=== PATIENT | female | born 1995 | race Caucasian/White ===

== ENCOUNTER → 2017-04-08 | Outpatient (CLI) | payer MEDICAID | LOC: LC 14:47 | PROVIDERS: ATTEND Specialist | PROC: 4A1HXCZ Monitoring of Products of Conception, Cardiac Rate, External Approach (ICD-10-PCS; principal; 2017-04-08) | DX: Z36 Encounter for antenatal screening of mother (principal) ==

== ENCOUNTER 2017-05-23 21:30 | Emergency (ER) | payer MEDICAID ==
--- NOTE | 2017-05-23 22:56 | ER Document Report ---
HPI - HPI Patient complains to provider of: right hand pain Onset: This afternoon Onset/Duration: Sudden Quality of pain: Achy Severity: Moderate Pain Level: 3 Context: Presents emergency department with complaints of right hand pain. Patient reports she tripped and started to fall and caught herself on her hand this afternoon. She reports now pain with movement. Patient is reports she did not fall on her abdomen. Denies abdominal pain. Reports the baby is moving as normal. Reports she is right hand dominant Associated Symptoms: None Exacerbated by: Movement Relieved by: Denies Similar symptoms previously: No Recently seen / treated by doctor: No - REPRODUCTIVE Reproductive: DENIES: : - DERM Skin Color: Normal Past Medical History - General Information source: Patient Last Menstrual Period: - Social History Smoking Status: Unknown if Ever Smoked Cigarette use (# per day): No Frequency of alcohol use: None Drug Abuse: None Lives with: Family Family History: Reviewed & Not Pertinent Patient has suicidal ideation: No Patient has homicidal ideation: No Pulmonary Medical History: Denies: Hx Tuberculosis Renal/ Medical History: Denies: Hx Peritoneal Dialysis Psychiatric Medical History: Reports: Hx Attention Deficit Hyperactivity Disorder, Hx Bipolar Disorder, Hx Depression Past Surgical History: Reports: Hx Section - Immunizations Immunizations up to date: Yes Hx Diphtheria, Pertussis, Tetanus Vaccination: Yes Vertical Provider Document - CONSTITUTIONAL Agree With Documented VS: Yes Exam Limitations: No Limitations General Appearance: WD/WN, No Apparent Distress - nontoxic looking - INFECTION CONTROL TRAVEL OUTSIDE OF THE [place] IN LAST 30 DAYS: No - HEENT HEENT: Atraumatic, Normocephalic - NECK Neck: Supple - RESPIRATORY Respiratory: No Respiratory Distress O2 Sat by Pulse Oximetry: 97 - CARDIOVASCULAR Cardiovascular: Regular Rate - GI/ABDOMEN Gastrointestinal: Abdomen Non-Tender - MUSCULOSKELETAL/EXTREMETIES Musculoskeletal/Extremeties: MAEW, FROM, Tender - right hand dorsally ttp, no obvious deformity, + swelling, no ecchymosis, brisk cap refill, no wrist tenderness - NEURO Level of Consciousness: Awake, Alert, Appropriate Motor/Sensory: No Motor Deficit - DERM Integumentary: Warm, Dry Course - Re-evaluation Re-evalutation: 05/24/17 00:20 Patient instructed on fracture right hand. Patient instructed on plan of care for splint. Requesting something for pain. Requesting something stronger than Tylenol. Reports she has taken Vicodin and Percocet before without problems. Instructed on the importance of follow-up with orthopedics. She verbalized understanding 05/24/17 00:51 Patient reports hand feels much better after splint has been placed. - Vital Signs Vital signs: Temp Pulse Resp BP Pulse Ox 98.8 F 83 18 130/64 H 97 05/23/17 22:14 05/23/17 22:14 05/23/17 22:14 05/23/17 22:14 05/23/17 22:14 - Diagnostic Test Radiology reviewed: Image reviewed, Reports reviewed - EXAM DESCRIPTION: HAND RIGHT 3 VIEWS COMPLETED DATE/TIME: 05/23/2017 11:45 pm REASON FOR STUDY: hand pain, fell on hand COMPARISON: None. EXAM PARAMETERS: NUMBER OF VIEWS: Three views. TECHNIQUE: AP, lateral and oblique radiographic images acquired of the right hand. LIMITATIONS: None. FINDINGS: MINERALIZATION: Normal. BONES: Mildly displaced oblique fracture through the 3rd metacarpal diaphysis with nondisplaced incomplete fracture of the 4th metacarpal diaphysis. JOINTS : No effusions. SOFT TISSUES: Mild circumferential soft tissue swelling. OTHER : No other significant finding. IMPRESSION: Oblique fractures through the 3rd and 4th metacarpal diaphyses as detailed above. Procedures - Immobilization Right Hand Pre-Proc Neuro Vasc Exam: Normal Immobilizer type: Volar splint Performed by: YANN uribe Post-Proc Neuro Vasc Exam: Unchanged from pre-exam Alignment checked and good: Yes Discharge - Discharge Clinical Impression: Right hand pain, fx 3rd/4th metacarpal right hand Condition: Stable Disposition: HOME, SELF-CARE Instructions: Ice & Elevation ([facility]), Oral Narcotic Medication ([facility]), Fracture ( [facility]), Splint Pending Casting ([facility]) Additional Instructions: *You have been evaluated for right hand pain, fracture 3rd metacarpal diaphysis with nondisplaced incomplete fracture of the 4th metacarpal diaphysis. *Maintain the splint *Rest/Ice/Elevate your hand *Follow up with orthopedics within 5 days-call for an appointment *Take medication as prescribed for pain *Return to ED for worsening condition, changes, needs Referrals: [facility] [Provider Group] - Follow up in 3-5 days HEATHER CARLSON MD [Primary Care Provider] - Follow up in 3-5 days
--- NOTE | 2017-05-23 23:57 | RADIOLOGY REPORT (SQ) ---
EXAM DESCRIPTION: HAND RIGHT 3 VIEWS COMPLETED DATE/TIME: 05/23/2017 11:45 pm REASON FOR STUDY: hand pain, fell on hand COMPARISON: None. EXAM PARAMETERS: NUMBER OF VIEWS: Three views. TECHNIQUE: AP, lateral and oblique radiographic images acquired of the right hand. LIMITATIONS: None. FINDINGS: MINERALIZATION: Normal. BONES: Mildly displaced oblique fracture through the 3rd metacarpal diaphysis with nondisplaced incom plete fracture of the 4th metacarpal diaphysis. JOINTS: No effusions. SOFT TISSUES: Mild circumferential soft tissue swelling. OTHER: No other significant finding. IMPRESSION: Oblique fractures through the 3rd and 4th metacarpal diaphyses as detailed above. TECHNICAL DOCUMENTATION: JOB ID: [id number] [employer]- All Rights Reserved
[2017-05-24] MEDS ORDERED: HYDROCODONE/ACETAMINOPHEN 5-325 MG 6 TAB/DSPK PO PRN (00:16)
[2017-05-24 01:00] VITALS: BP 115/78
== END 2017-05-24 00:58 | disposition home or self-care (01) ==
LOC: ER 21:30
DX: S62.302A Unspecified fracture of third metacarpal bone, right hand, initial encounter for closed fracture (principal); S62.304A Unspecified fracture of fourth metacarpal bone, right hand, initial encounter for closed fracture; M79.641 Pain in right hand; X58.XXXA Exposure to other specified factors, initial encounter
CPT/HCPCS: 99283

== ENCOUNTER 2018-03-27 21:36 | Emergency (ER) | payer OTHER, MEDICAID ==
[2018-03-27] MEDS ORDERED: LORAZEPAM INJ 2 MG/1 ML VIAL IV ONE ×2 (21:54→23:26)
[2018-03-27] MEDS ORDERED: NORMAL SALINE 1000 ML 1,000 ML IV ONE (21:55)
[2018-03-27 23:19] LABS: ALANINE AMINOTRANSFERASE 34 U/L (9-52); ALBUMIN 4.6 g/dL (3.5-5.0); ALKALINE PHOSPHATASE 78 U/L (38-126); ANION GAP 18 (5-19); ASPARTATE AMINO TRANSFERASE 32 U/L (14-36); BILIRUBIN,DIRECT 0.3 mg/dL (0.0-0.4); BILIRUBIN,TOTAL 0.6 mg/dL (0.2-1.3); BLOOD UREA NITROGEN 6 mg/dL (7-20); CALCIUM 9.6 mg/dL (8.4-10.2); CARBON DIOXIDE 22 mmol/L (22-30); CHLORIDE 108 mmol/L (98-107); GLUCOSE 90 mg/dL (75-110); POTASSIUM 3.3 mmol/L (3.6-5.0); SODIUM 147.8 mmol/L (137-145); TOTAL PROTEIN 7.6 g/dL (6.3-8.2)
[2018-03-27 23:31] LABS: ABSOLUTE EOSINOPHILS # (AUTO) 0.1 10^3/uL (0.0-0.6); ABSOLUTE LYMPHOCYTES (AUTO) 2.4 10^3/uL (0.5-4.7); ABSOLUTE MONOCYTES (AUTO) 0.9 10^3/uL (0.1-1.4); ABSOLUTE NEUT (AUTO) 7.1 10^3/uL (1.7-8.2); BASOPHILS % (AUTO) 0.4 % (0-2); EOSINOPHILS % (AUTO) 0.5 % (0-6); HEMATOCRIT 45.5 % (36.0-47.0); HEMOGLOBIN 15.7 g/dL (12.0-15.5); MEAN CORPUSCULAR HEMOGLOBIN 30.8 pg (27.0-33.4); MEAN CORPUSCULAR HGB CONC 34.5 g/dL (32.0-36.0); MEAN CORPUSCULAR VOLUME 89 fl (80-97); MONOCYTES % (AUTO) 8.4 % (3-13); PLATELET COUNT 291 10^3/uL (150-450); RED CELL DISTRIBUTION WIDTH 13.7 % (11.5-14.0); SEGMENTED NEUTROPHILS % (AUTO) 67.7 % (42-78); TOTAL CELLS COUNTED % (AUTO) 100 %; WHITE BLOOD COUNT 10.5 10^3/uL (4.0-10.5)
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
[2018-03-28] MEDS ORDERED: KETOROLAC TROMETHAMINE INJ/PF 30 MG/1 ML SDV IV ONE (01:16)
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
[2018-03-28 01:50] VITALS: BP 127/76
--- NOTE | 2018-03-28 08:29 | EKG REPORT ---
SEVERITY:- ABNORMAL ECG - SINUS TACHYCARDIA NONSPECIFIC ST-T CHANGES- INFERIOR LEADS : Confirmed by: Kevin Woo MD 28-Mar-2018 08:28:22
== END 2018-03-28 01:49 | disposition home or self-care (01) ==
LOC: ER 21:36
DX: S20.219A Contusion of unspecified front wall of thorax, initial encounter (principal); M54.2 Cervicalgia; R07.9 Chest pain, unspecified; R51 Headache; M54.9 Dorsalgia, unspecified; V47.5XXA Car driver injured in collision with fixed or stationary object in traffic accident, initial encounter; F10.129 Alcohol abuse with intoxication, unspecified; F41.9 Anxiety disorder, unspecified; R00.0 Tachycardia, unspecified; R06.82 Tachypnea, not elsewhere classified
CPT/HCPCS: 93005; 96376; 99285; 96361; 96374; 96375; 36415; 84702; 85025; 80053; 70450; 71260; 72125; 74177; 93010; J1885; J2060; J7030

== ENCOUNTER 2018-04-15 | Emergency (ER) | payer MEDICAID, OTHER | END 2018-04-15 13:53 | disposition left against medical advice (07) | DX: Z53.21 Procedure and treatment not carried out due to patient leaving prior to being seen by health care provider (principal) ==

== ENCOUNTER 2018-10-13 00:07 | Emergency (ER) | payer MEDICAID ==
[2018-10-13] MEDS ORDERED: FENTANYL CITRATE INJ/PF 100 MCG/2 ML AMPUL IV ONE ×2 (00:35→00:55)
[2018-10-13] MEDS ORDERED: BUPIVACAINE HCL 0.5 % INJ/PF 30 ML SDV INJ ONE (00:35)
[2018-10-13] MEDS ORDERED: LIDOCAINE 2% INJ (20 MG/ML) 20 ML MDV INJ ONE (00:36)
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
[2018-10-13] MEDS ORDERED: HYDROCODONE/ACETAMINOPHEN 5-325 MG (6 TAB/ER DISP) PO PRN (02:27)
[2018-10-13 02:48] VITALS: BP 130/64
== END 2018-10-13 02:48 | disposition home or self-care (01) ==
LOC: ER 00:07
DX: S52.612A Displaced fracture of left ulna styloid process, initial encounter for closed fracture (principal); S52.592A Other fractures of lower end of left radius, initial encounter for closed fracture; W19.XXXA Unspecified fall, initial encounter; F12.10 Cannabis abuse, uncomplicated
CPT/HCPCS: 99283; 96374; 73110; 29125; J3490 ×2; J3010

== ENCOUNTER 2019-03-09 14:31 | Emergency (ER) | payer MEDICAID ==
--- NOTE | 2019-03-09 15:48 | ER Document Report ---
HPI - HPI Patient complains to provider of: ear pain, sore throat Time Seen by Provider: 03/09/19 15:38 Onset: Other Onset/Duration: Persistent Quality of pain: Achy Pain Level: 3 Context: Patient presents the emergency department with complaints of right ear pain for the last few days. She also complains of nasal congestion sore throat and chest congestion for the past week. Denies fever vomiting diarrhea. Denies trauma. Has not had recent swimming or trip Associated Symptoms: Earache, Sore throat Exacerbated by: Denies Relieved by: Denies Similar symptoms previously: No Recently seen / treated by doctor: No - REPRODUCTIVE Reproductive: DENIES: : Past Medical History - General Information source: Patient - Social History Smoking Status: Current Some Day Smoker Cigarette use (# per day): Yes Frequency of alcohol use: None Drug Abuse: None Family History: Reviewed & Not Pertinent Patient has suicidal ideation: No Patient has homicidal ideation: No Pulmonary Medical History: Denies: Hx Tuberculosis Renal/ Medical History: Denies: Hx Peritoneal Dialysis Psychiatric Medical History: Reports: Hx Attention Deficit Hyperactivity Disorder, Hx Bipolar Disorder, Hx Depression Past Surgical History: Reports: Hx Section - Immunizations Immunizations up to date: Yes Hx Diphtheria, Pertussis, Tetanus Vaccination: Yes Vertical Provider Document - CONSTITUTIONAL Agree With Documented VS: Yes Exam Limitations: No Limitations General Appearance: WD/WN, No Apparent Distress - INFECTION CONTROL TRAVEL OUTSIDE OF THE [place] IN LAST 30 DAYS: No - HEENT HEENT: Atraumatic, Normocephalic, Pharyngeal Erythema - Open his mouth wide good airway no trismus. negative: Conjuctival Injection, Tympanic Membrane Red - right external canal with erythema, Tympanic Membrane Bulging - NECK Neck: Normal Inspection, Supple. negative: Lymphadenopathy-Left, Lymphadenopathy-Right - RESPIRATORY Respiratory: Breath Sounds Normal, No Respiratory Distress - CARDIOVASCULAR Cardiovascular: Regular Rate - MUSCULOSKELETAL/EXTREMETIES Musculoskeletal/Extremeties: CHIDI SEE - NEURO Level of Consciousness: Awake, Alert, Appropriate - DERM Integumentary: Warm, Dry Course - Re-evaluation Re-evalutation: 03/10/19 09:27 Was treated with eardrops for otitis externa. Instructed on throat culture pending strep test negative. She verbalized understanding to all instructions. Dictation of this chart was performed using voice recognition software; therefore, there may be some unintended grammatical errors. - Vital Signs Vital signs: Temp Pulse Resp BP Pulse Ox 98 F 85 18 137/72 H 98 03/09/19 14:40 03/09/19 15:35 03/09/19 14:40 03/09/19 14:40 03/09/19 14:40 Discharge - Discharge Clinical Impression: Otitis externa, Sore throat Condition: Stable Disposition: HOME, SELF-CARE Instructions: Use of Ear Drops ([facility]), Otitis Externa ([facility]), Sore Throat ([facility]) Additional Instructions: *You have been evaluated for ear pain, otitis externa, sore throat *the strep Test was negative. A throat culture has been sent and you may be contacted should you need antibiotics. *Use ear drops as prescribed 4 drops right ear 3 times a day for 5 days *Follow up with a primary care provider within one week *To your temperature. Take Tylenol or ibuprofen as indicated for fever and pain *Return to ED for worsening condition, changes, needs Monitor your blood pressure. Your blood pressure was elevated today. This may be because you were anxious, in pain or because you need medication. It is important to follow up with your primary care provider for full evaluation. Forms: Elevated Blood Pressure, Return to Work
[2019-03-09] MEDS ORDERED: NEOMY SULF/POLYMYX B SULF/HC OTIC SUSP 10 ML AD SCH (16:00)
[2019-03-09 17:52] VITALS: BP 120/77
== END 2019-03-09 17:25 | disposition home or self-care (01) ==
LOC: ER 14:31
DX: H60.90 Unspecified otitis externa, unspecified ear (principal); J02.9 Acute pharyngitis, unspecified; H92.01 Otalgia, right ear; R09.81 Nasal congestion; R09.89 Other specified symptoms and signs involving the circulatory and respiratory systems; F17.210 Nicotine dependence, cigarettes, uncomplicated
CPT/HCPCS: 99283; 87070; 87880; J3490

== ENCOUNTER 2019-05-19 10:16 | Emergency (ER) | payer MEDICAID ==
[2019-05-19] MEDS ORDERED: ONDANSETRON 4 MG TAB.RAPDIS PO ONE (11:08)
--- NOTE | 2019-05-19 11:12 | ER Document Report ---
ED Medical Screen (RME) - General Chief Complaint: Headache Stated Complaint: HEADACHE Time Seen by Provider: 05/19/19 11:05 Mode of Arrival: Ambulatory Information source: Patient Notes: Patient presents emergency department with multiple complaints to include dizzy feeling lightheaded abdominal pain nausea vomiting and possible cervical cancer. Patient reports she is HPV and herpes and she felt inside her and felt bumps. She is worried she has cervical cancer. She reports she has some vaginal bleeding and she is has IUD. She reports pain with intercourse. Patient reports she is having chest pain. Patient denies history of cardiac disease. She reports symptoms for the past week or 2. Patient is gagging and vomited once in RME. I have greeted and performed a rapid initial assessment of this patient. A comprehensive ED assessment and evaluation of the patient, analysis of test results and completion of the medical decision making process will be conducted by additional ED providers. Dictation of this chart was performed using voice recognition software; therefore, there may be some unintended grammatical errors. TRAVEL OUTSIDE OF THE [place] IN LAST 30 DAYS: No - Related Data Allergies/Adverse Reactions: No Known Allergies Allergy (Verified 05/19/19 10:19) Past Medical History Pulmonary Medical History: Denies: Hx Tuberculosis Renal/ Medical History: Denies: Hx Peritoneal Dialysis Psychiatric Medical History: Reports: Hx Attention Deficit Hyperactivity Disorder, Hx Bipolar Disorder, Hx Depression Past Surgical History: Reports: Hx Section - Immunizations Immunizations up to date: Yes Hx Diphtheria, Pertussis, Tetanus Vaccination: Yes Physical Exam - Vital signs Vitals: Temp Pulse Resp BP Pulse Ox 99 F 110 H 18 126/98 H 100 05/19/19 10:05/19/19 10:05/19/19 10:05/19/19 10:05/19/19 10:22 Course - Vital Signs Vital signs: Temp Pulse Resp BP Pulse Ox 99 F 110 H 18 126/98 H 100 05/19/19 10:05/19/19 10:05/19/19 10:05/19/19 10:22 05/19/19 10:22
[2019-05-19] MEDS ORDERED: NORMAL SALINE 1000 ML 1,000 ML IV ONE ×2 (12:28→17:02)
[2019-05-19] MEDS ORDERED: ONDANSETRON HCL INJ/PF 4 MG/2 ML SDV IV ONE (12:31)
[2019-05-19 12:35] LABS: APPEARANCE,URINE CLOUDY; BILIRUBIN,URINE NEGATIVE (NEGATIVE); COLOR,URINE YELLOW; GLUCOSE, URINE NEGATIVE (NEGATIVE); KETONES,URINE NEGATIVE (NEGATIVE); LEUKOCYTE ESTERASE,URINE MODERATE (NEGATIVE); NITRITE,URINE NEGATIVE (NEGATIVE); PROTEIN,URINE NEGATIVE (NEGATIVE); URINE SPECIFIC GRAVITY 1.009; UROBILINOGEN,URINE NEGATIVE mg/dL (<2.0)
--- NOTE | 2019-05-19 12:38 | ER Document Report ---
ED General - General Chief Complaint: Headache Stated Complaint: HEADACHE Time Seen by Provider: 05/19/19 11:05 Mode of Arrival: Ambulatory Notes: Patient is a 23-year-old female who presents to the emergency department with multiple complaints. Patient states that for about 2 weeks she has had chills, nausea, feeling of dizziness and a headache. Reports that the headache has been intermittent. Patient denies fever. Patient states that the headache is at the base of the neck and wraps around both sides of her head. Patient denies photosensitivity. Patient did report vomiting once while in triage. Patient states she is also been seen at the health department for possible cervical cancer. Patient states she was diagnosed with genital herpes and was positive for HPV. Patient states she was supposed return to the health department at 1230 this afternoon for an ultrasound, STD screening and to "biopsy the bumps that are inside me." Patient reports that instead she came to the emergency department due to the headache and multiple other complaints. Patient states she has an IUD. Patient states that she has had a lot of pain with sexual intercourse and bleeding afterwards. Patient states that she will have intermittent vaginal bleeding not associated with her menstrual cycle. TRAVEL OUTSIDE OF THE [place] IN LAST 30 DAYS: No - Related Data Allergies/Adverse Reactions: No Known Allergies Allergy (Verified 05/19/19 10:19) Past Medical History - General Information source: Patient - Social History Smoking Status: Unknown if Ever Smoked Chew tobacco use (# tins/day): No Frequency of alcohol use: None Drug Abuse: None Family History: Reviewed & Not Pertinent Patient has suicidal ideation: No Patient has homicidal ideation: No - Past Medical History Cardiac Medical History: Reports: None Pulmonary Medical History: Reports: None Denies: Hx Tuberculosis EENT Medical History: Reports: None Neurological Medical History: Reports: None Endocrine Medical History: Reports: None Renal/ Medical History: Reports: None. Denies: Hx Peritoneal Dialysis Malignancy Medical History: Reports: None GI Medical History: Reports: None Musculoskeletal Medical History: Reports None Skin Medical History: Reports None Psychiatric Medical History: Reports: Hx Attention Deficit Hyperactivity Disorder, Hx Bipolar Disorder, Hx Depression Traumatic Medical History: Reports: None Infectious Medical History: Reports: None Past Surgical History: Reports: Hx Section - Immunizations Immunizations up to date: Yes Hx Diphtheria, Pertussis, Tetanus Vaccination: Yes Review of Systems - Review of Systems Constitutional: See HPI EENT: No symptoms reported Cardiovascular: No symptoms reported Respiratory: No symptoms reported Gastrointestinal: See HPI Genitourinary: See HPI Female Genitourinary: See HPI Musculoskeletal: No symptoms reported Skin: No symptoms reported Hematologic/Lymphatic: No symptoms reported Neurological/Psychological: No symptoms reported Physical Exam - Vital signs Vitals: Temp Pulse Resp BP Pulse Ox 99 F 110 H 18 126/98 H 100 05/19/19 10:22 05/19/19 10:22 05/19/19 10:22 05/19/19 10:22 05/19/19 10:22 Interpretation: Tachycardic - Notes Notes: GENERAL: Well-appearing, well-nourished and in no acute distress. HEAD: Atraumatic, normocephalic. EYES: Pupils equal round and reactive to light, extraocular movements intact, sclera anicteric, conjunctiva are normal. ENT: TMs normal, nares patent, oropharynx clear without exudates. Moist mucous membranes. NECK: Normal range of motion, supple without lymphadenopathy or JVD. No nuchal rigidity. LUNGS: Breath sounds clear to auscultation bilaterally and equal. No wheezes rales or rhonchi. HEART: Tachycardiac regular rhythm without murmurs, rubs or gallops. ABDOMEN: Soft, nontender, normoactive bowel sounds. No supbrapubic tenderness. No guarding, no rebound. No masses appreciated. BACK: No cervical, thoracic, lumbar midline tenderness. No saddle anesthesia, normal distal neurovascular exam. GENITOURINARY: Deferred. EXTREMITIES: Normal range of motion, no pitting or edema. No clubbing or cyanosis. NEUROLOGICAL: Cranial nerves II through XII grossly intact. Normal speech, normal gait. PSYCH: Normal mood, normal affect. SKIN: Warm, Dry, normal turgor, no rashes or lesions noted. Course - Re-evaluation Re-evalutation: 05/19/19 12:36 During initial evaluation and questioning of the patient's symptoms, patient st ates "I've been here for two hours and in pain, can't you give me something for it, like a shot in the butt." I did explain to the patient that I would give something for her pain but first I would like to question and perform a thorough physical assessment as she does have multiple complaints. 05/19/19 13:31 Oh examination was complete patient tolerated well. Patient reports that her headache has now decreased to a 3 out of 5. Patient states that she feels much better although her headache is still present. Blood work and ultrasound results pending. 05/19/19 13:56 Patient hypokalemic with a potassium of 3.1. I did discuss this with Dr. Grant who states giving her 40 mEq PO. 05/19/19 15:48 Patient's ultrasound was negative. I did discuss the results of the pelvic examination, blood work, ultrasound with the patient. Patient states her headache is much better and has been tolerating crackers and p.o. fluids. I did inform the patient to follow-up with the health department as previously scheduled as they do perform Pap smears they are to rule out cervical cancer. 05/19/19 16:54 Patient's vital signs stable, it was noted that the patient has a heart rate of 115. Patient states that she would like to go home but does feel like her heart is beating faster. She states that although she did not mention the intermittent chest pain and rapid heartbeat earlier to me she has been having these symptoms. I did discuss case with Dr. Bess and reviewed the EKG who ines mmended that I add on a TSH, magnesium level and give another liter of fluid and give another dose of 40 mEq of potassium PO. 05/19/19 17:47 The patient stated that she had to leave and was unable to receive the fluid bolus as well as waiting for the magnesium and thyroid results. Patient states she has an important meeting to help gain custody back of her kids that she cannot miss. I did explain to patient that we are unsure what is causing the tachycardia although this could be from the results that are still pending. I also spoke with the patient that I cannot rule out a significant problem without further testing. I did inform the patient to return for worsening of symptoms or continued symptoms to include chest pain, palpitations, dizziness, passing out or any other concerning signs or symptoms. Patient states she does feel better after the interventions today. I did give patient discharge instructions regarding UTI, foods rich in potassium and strict return precautions and an antibiotic for UTI. 05/19/19 19:59 I did speak with the patient via telephone to report the low magnesium level. Patient states that her headache is starting to come back and she is having chills. I did inform the patient that if she was not feeling better to return to the emergency department for reevaluation and to have her electrolytes rechecked and symptoms treated. Patient states she will find a ride and come back to the emergency department. Upon further conversation patient states she has been vomiting over the past 2 weeks not just once this morning in triage. Patient states she did not mention this earlier today as she was concerned about other symptoms. - Vital Signs Vital signs: Temp Pulse Resp BP Pulse Ox 98.4 F 113 H 18 117/62 99 05/19/19 16:52 05/19/19 16:52 05/19/19 10:22 05/19/19 16:52 05/19/19 16:52 - Laboratory Result Diagrams: 05/19/19 12:59 05/19/19 12:59 Laboratory results interpreted by me: 05/19/19 05/19/19 05/19/19 11:28 12:59 12:59 Seg Neuts % (Manual) 93 H Lymphocytes % (Manual) 5 L Monocytes % (Manual) 2 L Abs Neuts (Manual) 9.1 H Potassium 3.1 L Magnesium Total Bilirubin 1.5 H Urine Blood LARGE H Ur Leukocyte Esterase MODERATE H 05/19/19 12:59 Seg Neuts % (Manual) Lymphocytes % (Manual) Monocytes % (Manual) Abs Neuts (Manual) Potassium Magnesium 1.3 L Total Bilirubin Urine Blood Ur Leukocyte Esterase Although the patient is noted to have a large amount of blood in her urine she only has a few red blood cells. Patient does have a moderate amount of leukocyte in her urine. Procedures - Pelvic Exam Pelvic exam Time completed: 13:20 Cultures obtained: Yes Wet prep obtained: Yes Herpes culture obtained: No Foreign body removed: No Witnessed by: NURSE [employer] Notes: 05/19/19 13:30 Pelvic examination was performed. Patient did tolerate well and had minimal pain with the insertion and movement of the speculum. I was able to visualize the cervix without difficulty, and IUD string was visualized and the cervix was closed. There was a scant amount of red blood noted in the vaginal vault. No blood clots noted. Discharge - Discharge Clinical Impression: Pelvic pain Urinary tract infection Qualifiers: Urinary tract infection type: acute cystitis Hematuria presence: with hematuria Qualified Code(s): N30.01 - Acute cystitis with hematuria Condition: Stable Disposition: HOME, SELF-CARE Additional Instructions: Today was seen in the emergency department for pelvic pain and vaginal bleeding. Your pelvic exam was negative for gonorrhea, chlamydia, trichomonas. These are 3 types early transmitted diseases. We did perform a pelvic ultrasound which did not show any abnormality or concerning findings. Your urine did show a urinary tract infection in which I will prescribe Keflex. Keflex is an antibiotic that you will take for 5 days for its full completed course. Your lab work did show a low potassium level of 3.1. We did give you oral potassium pills while in the emergency department. It is uncertain as to what caused the low potassium although it could be from the reported vomiting. Increasing your food intake and fruits, fresh vegetables such as potatoes, spinach, beans, drinking orange or tomato juice, milk and certain fishes that contain potassium will help improve this. Low potassium levels can lead to heart palpitations, weakness and fatigue. Please return to the emergency department for muscle twitching or cramping, palpitations or irregular heartbeat or any new or alarming symptoms. These follow-up with the health department for evaluation of possible cervical cancer and as previously scheduled. Please call them to make another appointment as you missed the one today while in the emergency department. Please also inform them that your potassium level was low and that you will need a repeat level drawn. Unfortunately you had to leave prior to receiving the magnesium and thyroid level. Please return to the emergency department for any worsening signs or symptoms to include chest pain, palpitations. Please include your fluid intake and eat foods that are rich in potassium as discussed previously. Headache The physician does not feel that the headache you are experiencing has a serious underlying cause. Most headaches are due to emotional stress, with resultant muscle tension (tension headache). Occasionally, headaches are secondary to changes in the blood vessels of the scalp (vascular headache and migraine headache). Sometimes, a headache is the first symptom of another developing illness, such as a viral infection. You have no evidence of stroke, bleeding, meningitis, or other serious cause of your headache. The treatment of headaches varies with the severity and cause of the pain. Not all headaches need pain shots. In fact, there is evidence that using narcotics for headaches may make them worse in the long run. The physician will determine the therapy that's in your best interest. If you develop a fever, if the headache is different from any you've previously experienced, or if the headache progressively worsens, then call your physician at once or go to the emergency room. Urinary Tract Infection Your evaluation indicates that you have a urinary tract infection. This is due to germs growing in the bladder. This is a common problem. This infection usually responds quickly to antibiotics. Your antibiotic should be taken exactly as prescribed. Drink plenty of fluids -- three to four quarts a day. Occasionally, a bladder anesthetic will be prescribed to help stop the feeling of urgency until the antibiotic has a chance to clear the infection. This may cause your urine to be dark orange. Certain urine infections require a culture. If the doctor obtained a culture, the results will be back in two days. You should call to see if a change in treatment is needed. A repeat urinalysis after you finish treatment is often recommended. The physician will let you know if further testing is required. Call the doctor if you develop fever, chills, flank pain, inability to urinate, or blood in the urine. Hypokalemia You have an abnormally decreased level of serum potassium. Hypokalemia may cause weakness, fatigue, or heart rhythm abnormalities. Sometimes there are no s ymptoms at all. Usually, low serum potassium is due to taking diuretics (water pills). It can also be due to excessive vomiting or diarrhea. If no obvious cause is evident, further evaluation will be necessary. Treatment is usually oral potassium supplements. Take these exactly as prescribed. You may also want to select foods which are naturally high in potassium -- fruits (such as bananas, cantaloupe, grapes, oranges, prunes, tomatoes), fresh vegetables (potatoes, spinach, beans, peas), orange or tomato juice, tomato pasta sauce, milk, fish (halibut, tuna, salmon, meenu) A follow-up blood test is usually performed to assure that the potassium is returning to normal. Call the physician if you suffer severe weakness, muscle twitching or cramping, palpitations (pounding or irregular heartbeat), or any other new or alarming symptoms. Prescriptions: Cephalexin Monohydrate [Keflex 500 mg Capsule] 500 mg PO BID 5 Days #5 capsule Forms: Return to Work
[2019-05-19] MEDS ORDERED: METOCLOPRAMIDE HCL INJ/PF 10 MG/2 ML SDV IV ONE (12:39)
[2019-05-19] MEDS ORDERED: DIPHENHYDRAMINE HCL 50 MG/ML VIAL IV ONE (12:39)
[2019-05-19] MEDS ORDERED: KETOROLAC TROMETHAMINE INJ/PF 30 MG/1 ML SDV IV ONE (12:40)
[2019-05-19 13:17] LABS: HEMATOCRIT 41.1 % (36.0-47.0); HEMOGLOBIN 14.5 g/dL (12.0-15.5); MEAN CORPUSCULAR HEMOGLOBIN 32.3 pg (27.0-33.4); MEAN CORPUSCULAR HGB CONC 35.2 g/dL (32.0-36.0); MEAN CORPUSCULAR VOLUME 92 fl (80-97); PLATELET COUNT 259 10^3/uL (150-450); RED BLOOD COUNT 4.49 10^6/uL (3.72-5.28); RED CELL DISTRIBUTION WIDTH 12.5 % (11.5-14.0); WHITE BLOOD COUNT 9.8 10^3/uL (4.0-10.5)
[2019-05-19 13:28] LABS: T.VAGINALIS (WET MOUNT) NO TRICHOMONAS SEEN; YEAST (WET MOUNT) NO YEAST SEEN
[2019-05-19 13:29] LABS: WBCS (WET MOUNT) FEW WBCS SEEN
[2019-05-19 13:31] LABS: ALANINE AMINOTRANSFERASE 27 U/L (9-52); ALBUMIN 4.4 g/dL (3.5-5.0); ALKALINE PHOSPHATASE 78 U/L (38-126); ANION GAP 11 (5-19); ASPARTATE AMINO TRANSFERASE 21 U/L (14-36); BILIRUBIN,DIRECT 0.2 mg/dL (0.0-0.4); BILIRUBIN,TOTAL 1.5 mg/dL (0.2-1.3); BLOOD UREA NITROGEN 11 mg/dL (7-20); CALCIUM 9.8 mg/dL (8.4-10.2); CARBON DIOXIDE 25 mmol/L (22-30); CHLORIDE 105 mmol/L (98-107); GLUCOSE 92 mg/dL (75-110); POTASSIUM 3.1 mmol/L (3.6-5.0); SODIUM 140.6 mmol/L (137-145)
[2019-05-19 13:52] LABS: ABSOLUTE LYMPHOCYTES# (MANUAL) 0.5 10^3/uL (0.5-4.7); ABSOLUTE MONOCYTES # (MANUAL) 0.2 10^3/uL (0.1-1.4); BASOPHILS % (MANUAL) 0 % (0-2); EOSINOPHILS % (MANUAL) 0 % (0-6); LYMPHOCYTES % (MANUAL) 5 % (13-45); MONOCYTES % (MANUAL) 2 % (3-13); SEGMENTED NEUTROPHILS % (MAN) 93 % (42-78); TOTAL CELLS COUNTED 100
[2019-05-19 13:53] LABS: HYPOCHROMASIA SLIGHT; OVALOCYTES SLIGHT; POLYCHROMASIA SLIGHT
[2019-05-19 13:54] LABS: PLATELET COMMENT ADEQUATE
[2019-05-19] MEDS ORDERED: POTASSIUM CHLORIDE 10 MEQ CAPSULE.ER PO ONE ×2 (13:56→17:03)
[2019-05-19 14:58] LABS: CHLAM PCR NOT DETECTED (NOT DETECT)
--- NOTE | 2019-05-19 15:22 | RADIOLOGY REPORT (SQ) ---
EXAM DESCRIPTION: U/S NON OB PEL TV W/DOPPLER COMPLETED DATE/TIME: 05/19/2019 3:08 pm REASON FOR STUDY: pelvic pain, irregular vaginal bleeding COMPARISON: 03/30/2014 TECHNIQUE: Dynamic and static grayscale images acquired of the pelvis via transvaginal approach and recorded on PACS. Additional selected color Doppler and spectral images recorded. LIMITATIONS: None. FINDINGS: UTERUS: Contour normal. No mass. ENDOMETRIAL STRIPE: Poorly visualized. IUD is present in the endometrial cavity. CERVIX: No nabothian cysts. RIGHT OVARY AND DOPPLER: Normal size. No worrisome masses. Small follicles. Normal arterial vascula r flow without evidence for torsion. LEFT OVARY AND DOPPLER: Normal size. No worrisome masses. Small follicles. Normal arterial vascular flow without evidence for torsion. FREE FLUID: None noted. OTHER: No other significant finding. MEASUREMENTS: UTERUS: 8.0 x 4.6 x 3.5 cm ENDOMETRIAL STRIPE: Poorly visualized, IUD in position RIGHT OVARY: 2.7 x 1.9 x 2.1 cm LEFT OVARY: 2.3 x 2.5 x 1.6 cm IMPRESSION: IUD is present in the endometrial cavity. No ultrasound abnormality of the pelvis to ex plain pelvic pain or bleeding. TECHNICAL DOCUMENTATION: JOB ID: [id number] [employer]- All Rights Reserved Rev-04/16 Reading location - IP/workstation name: [email or web address]
[2019-05-19] MEDS ORDERED: CEPHALEXIN 500 MG CAPSULE PO ONE (15:50)
[2019-05-19 16:56] VITALS: BP 117/62
--- NOTE | 2019-05-19 19:36 | EKG REPORT ---
SEVERITY:- ABNORMAL ECG - SINUS RHYTHM NONSPECIFIC T ABNORMALITIES, INFERIOR LEADS : Confirmed by: Neeru Najera MD 19-May-2019 19:36:06
== END 2019-05-19 17:50 | disposition home or self-care (01) ==
LOC: ER 10:16
DX: N30.01 Acute cystitis with hematuria (principal); R51 Headache; R42 Dizziness and giddiness; R11.2 Nausea with vomiting, unspecified; Z97.5 Presence of (intrauterine) contraceptive device; E87.6 Hypokalemia; R07.9 Chest pain, unspecified; R00.0 Tachycardia, unspecified
CPT/HCPCS: 93005; 99284; 96361; 96374; 96375; 36415; 87086; 87210; 83735; 84443; 85025; 81025; 80053; 81001; 87491; 87591; 76830; 93976; 93010; J1200; S0119; J1885; J2765; J7030

== ENCOUNTER 2019-05-19 20:57 | Emergency (ER) | payer MEDICAID | END 2019-05-19 21:30 | disposition left against medical advice (07) | LOC: ER 20:57 | DX: Z53.21 Procedure and treatment not carried out due to patient leaving prior to being seen by health care provider (principal) ==

== ENCOUNTER → 2020-02-02 | Outpatient (CLI) | payer MEDICARE, MEDICAID ==
--- NOTE | 2020-02-02 17:27 | EKG REPORT ---
SEVERITY:- NORMAL ECG - SINUS RHYTHM : Confirmed by: Kevin Woo MD 02-Feb-2020 17:27:28
== END ==
LOC: OD 14:50
PROVIDERS: ATTEND Physician Assistant
DX: F43.12 Post-traumatic stress disorder, chronic (principal); Z79.899 Other long term (current) drug therapy
CPT/HCPCS: 93005; 93010

== ENCOUNTER 2020-08-27 08:26 | Day surgery (SDC) | payer MEDICARE, MEDICAID ==
[~2020-08-27 08:26] MED LIST: PROPOFOL INJ 200 MG/20 ML VIAL IV ONE
--- NOTE | 2020-08-27 09:24 | Operative Report ---
Operative Report DATE OF SURGERY: 08/27/20 Operative Report: The risks benefits and alternatives of the procedure explained to the patient in detail and informed consent is obtained.A GIF Olympus video scope was inserted into the patient's mouth and hypopharynx ,the esophagus is identified intubated and insufflated, the scope was then advanced through the esophagus stomach and duodenum, retroflexion maneuver is done, the esophagus stomach and first and second portions of the duodenum examined PREOPERATIVE DIAGNOSIS: Gastroesophageal reflux disease POSTOPERATIVE DIAGNOSIS: Schatzki's ring status post breakage. Esophagitis status post biopsy rule out Westbrook's. Gastritis status post biopsy probably Helicobacter OPERATION: EGD with biopsy SURGEON: ELIDA CRUZ ANESTHESIA: LMAC TISSUE REMOVED OR ALTERED: As noted above COMPLICATIONS: None. ESTIMATED BLOOD LOSS: None. INTRAOPERATIVE FINDINGS: As noted above. PROCEDURE: Patient tolerated the procedure well. No immediate postprocedure complications are noted. Patient is discharged in good condition. Discharge date 08/27/2020. Discharge diet: Regular. Discharge activity: Regular. 2 to 3-week follow-up to discuss findings. Patient is instructed call the office or proceed to the emergency room should there be any further problems or questions. Wait on the pathology.
[2020-08-27 09:56] VITALS: BP 121/79
== END 2020-08-27 10:03 | disposition home or self-care (01) ==
LOC: END 08:26
PROVIDERS: ATTEND Internal Medicine Gastroenterology
DX: K22.2 Esophageal obstruction (principal); K21.0 Gastro-esophageal reflux disease with esophagitis; K31.9 Disease of stomach and duodenum, unspecified; Z79.899 Other long term (current) drug therapy; Z88.5 Allergy status to narcotic agent
CPT/HCPCS: 43239; 88342 ×2; 88305 ×2; J2704; 731